=== PATIENT | female | born 1995 | race Two or more races ===

== ENCOUNTER → 2019-10-30 | Outpatient (REF) | payer OTHER ==
[2019-10-30 19:46] LABS: CHLAMYDIA DNA AMPLIFICATION POSITIVE (NEGATIVE); GC DNA AMPLIFICATION NEGATIVE (NEGATIVE)
== END ==
LOC: EEVIPCON 16:16 → M SFHCLERA 16:16
PROVIDERS: ATTEND Physician Assistant
DX: R30.0 Dysuria (principal)